=== PATIENT | female | born 1965 | race Caucasian/White ===

== ENCOUNTER → 2020-06-29 | Outpatient (CLI) | payer BC, OTHER ==
--- NOTE | 2020-07-14 14:03 | MM ---
Reason for exam: screening (asymptomatic). Last mammogram was performed 1 year and 10 months ago. History: Patient is postmenopausal. Family history of breast cancer in maternal grandmother and breast cancer in paternal cousin. Reductions of both breasts, 2013. Physical Findings: A clinical breast exam by your physician is recommended on an annual basis and results should be correlated with mammographic findings. MG 3D Screening Mammo W/Cad Bilateral CC and MLO view(s) were taken. Prior study comparison: August 15, 2018, mammogram, performed at [facility]. September 25, 2017, mammogram, performed at [facility]. July 05, 2015, mammogram, performed at [facility]. Benign appearing bilateral calcifications. There is chronic nodularity in the left breast. No significant changes when compared with prior studies. ASSESSMENT: Benign, BI-RAD 2 RECOMMENDATION: Routine screening mammogram of both breasts in 1 year.
== END | disposition home or self-care (01) ==
LOC: RADMAMWWP 09:09
PROVIDERS: ATTEND Family Medicine
DX: Z12.31 Encounter for screening mammogram for malignant neoplasm of breast (principal); Z80.3 Family history of malignant neoplasm of breast; Z78.0 Asymptomatic menopausal state
CPT/HCPCS: 77063; 77067

== ENCOUNTER 2020-07-22 07:20 | Day surgery (SDC) | payer OTHER ==
[2020-07-20 10:37] VITALS: BMI 27.4
[2020-07-22 07:54] VITALS: RESP 16; TEMP 97.9
[2020-07-22] MEDS: LACTATED RINGERS 1,000 ML IV SCH ×2 (08:00→09:17)
[2020-07-22] MEDS ORDERED: LIDOCAINE 1% (10MG/ML) FOR IV START INTRADERMA ONE (08:00)
[2020-07-22 08:05] LABS: Glucose,Whole Blood 103 mg/dL (75-99)
[2020-07-22] MEDS ORDERED: LIDOCAINE 1% INJ 10MG/ML (20 ML MDV) ONE (09:18)
[2020-07-22] MEDS ORDERED: PROPOFOL 10 MG/ML 20 ML VIAL IV ONE (09:18)
--- NOTE | 2020-07-22 09:38 | P.PCN ---
Date of Procedure: 07/22/20 Procedure(s) Performed: Brief history: Patient is a pleasant scheduled for an elective upper endoscopy as well as colonoscopy as a part of evaluation of reflux and history of GERD/intermittent dysphagia to solids and passive regurgitation for the last few months duration. Currently on Prilosec 20 mg daily and symptoms are gradually improving. She also has prior history of colon polyps and hence scheduled for colonoscopy today. Procedure performed: Esophagogastroduodenoscopy with biopsy Colonoscopy with biopsy and appeared normal. In the transverse colon there was a 3 mm polyp that was removed by cold biopsy. Rest of Preoperative diagnosis: GERD/intermittent dysphagia to solids and passive regurgitation History of colon polyps Anesthesia: MAC Procedure: After informed consent was obtained from the patient was brought into the endoscopy unit and IV sedation was administered by anesthesia under continuous monitoring. Initially upper endoscopy was done. The Olympus GF 160 video endoscope was inserted inserted into the mouth and esophagus intubated without any difficulty and was gradually advanced into the stomach and duodenum and carefully examined. The bulb and second part of the duodenum appeared normal. The scope was then withdrawn into the stomach adequately insufflated with air and upon careful examination the antrum had mild antral gastritis and biopsies were done from this area. The body, cardia and fundus appeared normal. The scope was then withdrawn into the esophagus. The GE junction was located at 40 cm to the incisors. It appeared regular with some erythema consistent with LA grade a reflux esophagitis. Rest of the esophagus appeared normal. His were done from the distal esophagus. Patient tolerated the procedure well. At this time the patient continued to remain sedation. Initial digital rectal examination was normal. Olympus CF 160 video colonoscope was then inserted into the rectum and gradually advanced to the cecum without any difficulty. Careful examination was performed as the scope was gradually being withdrawn. The prep was excellent. The cecum, ascending colon, transverse colon, descending colon, sigmoid colon and rectum appeared normal. Retroflexion was performed in the rectum and no lesions were noted. Patient tolerated the procedure well. Impression: 1. Upper endoscopy revealed mild antral gastritis and LA grade a reflux esophagitis 2. Colonoscopy revealed a 2-3 mm polyp in the transverse colon status post rem oval by cold biopsy Recommendations: Findings of this examination were discussed with the patient as well as her family. She was advised to follow with the biopsy results. If the biopsy reveals adenoma she can have a repeat colonoscopy in 5 years. In the past the gastroesophageal reflux symptoms she will continue with Prilosec 20 mg daily and follow antireflux measures.
[2020-07-22 09:43] VITALS: PULSE 59
[2020-07-22 09:56] VITALS: BP 142/92
== END 2020-07-22 10:10 | disposition home or self-care (01) ==
LOC: ORWHC2ENDO 07:20
PROVIDERS: ATTEND Internal Medicine Gastroenterology
DX: Z12.11 Encounter for screening for malignant neoplasm of colon (principal); D12.3 Benign neoplasm of transverse colon; K29.50 Unspecified chronic gastritis without bleeding; K20.0 Eosinophilic esophagitis; R13.10 Dysphagia, unspecified; I10 Essential (primary) hypertension; E78.5 Hyperlipidemia, unspecified; Z86.010 Personal history of colon polyps; F17.210 Nicotine dependence, cigarettes, uncomplicated; F32.9 Major depressive disorder, single episode, unspecified; Z90.710 Acquired absence of both cervix and uterus; Z98.890 Other specified postprocedural states; Z90.89 Acquired absence of other organs; Z79.82 Long term (current) use of aspirin; Z79.899 Other long term (current) drug therapy
CPT/HCPCS: 88305; 45380; 43239; J2001; J2704

== ENCOUNTER → 2020-12-26 | Outpatient (CLI) | payer OTHER ==
--- NOTE | 2020-12-26 08:53 | CT ---
EXAMINATION TYPE: CT chest wo con DATE OF EXAM: 12/26/2020 COMPARISON: None, no outside images are available. HISTORY: follow up known pulmonary nodule CT DLP: 251.1 mGycm, Automated exposure control for dose reduction was used. CONTRAST: Performed injected with 0 mL of Isovue 300. TECHNIQUE: Axial images were obtained at 5 mm thick sections. Reconstructed images are reviewed on [employer] computer in the coronal plane. FINDINGS: Portion of the thyroid visualized is normal. There is a tiny peripheral nodule at the right lateral lung base, series 4 image 46. No enlarged medi astinal or hilar adenopathy is evident. The ascending aorta diameter at the level of the main pulmo nary artery is 4.1 cm. The main pulmonary artery diameter at the bifurcation is 1.[address] sections are obtained through the upper abdomen. Abdomen is essentially unremarkable. IMPRESSIONS: 1. Punctate peripheral nodularity in the right costophrenic angle. 2. If comparison images can be obtained, more direct evaluation for pulmonary nodule can be performed .
== END | disposition home or self-care (01) ==
LOC: RADCTMAIN 07:40
DX: R91.1 Solitary pulmonary nodule (principal)
CPT/HCPCS: 71250

== ENCOUNTER → 2021-02-10 | Outpatient (CLI) | payer OTHER ==
--- NOTE | 2021-02-10 12:44 | ECHOF ---
Referral Reason:I71.9 Aortic aneurysm of unspecified site, without MEASUREMENTS -------- HEIGHT: 165.1 cm WEIGHT: 74.8 kg BP: IVSd: 1.1 cm (0.6 - 1.1) LVIDd: 3.6 cm (3.9 - 5.3) LVPWd: 1.3 cm (0.6 - 1.1) IVSs: 1.6 cm LVIDs: 3.0 cm LVPWs: 1.3 cm LA Diam: 3.2 cm (2.7 - 3.8) LAESV Index (A-L): 24.90 ml/m Ao Diam: 2.8 cm (2.0 - 3.7) AV Cusp: 1.7 cm (1.5 - 2.6) LA Diam: 3.1 cm (2.7 - 3.8) MV EXCURSION: 13.189 mm (> 18.000) MV EF SLOPE: 61 mm/s (70 - 150) EPSS: 0.6 cm MV E Eleuterio: 0.37 m/s MV DecT: 225 ms MV A Eleuterio: 0.51 m/s MV E/A Ratio: 0.73 AR PHT: 456 ms RAP: 5.00 mmHg RVSP: 16.07 mmHg FINDINGS -------- Sinus rhythm. This was a technically good study. LV size, wall thickness and systolic function are normal, with an EF greater than 55%. The left olivia tricular size is normal. The right ventricle is normal in size. Normal LA size by volume 22+/-6 ml/m2. The right atrial size is normal. Trace amount of aortic regurgitation. Mild mitral regurgitation is present. Mild tricuspid regurgitation present. Right ventricular systolic pressure is normal at < 35 mmHg. There is no pulmonic regurgitation present. Echo free space represents a pericardial fat pad. CONCLUSIONS -------- 1. LV size, wall thickness and systolic function are normal, with an EF greater than 55%. 2. The left ventricular size is normal. 3. The right ventricle is normal in size. 4. Normal LA size by volume 22+/-6 ml/m2. 5. The right atrial size is normal. 6. Trace amount of aortic regurgitation. 7. Mild mitral regurgitation is present. 8. Mild tricuspid regurgitation present. 9. There is no pulmonic regurgitation present. 10. Echo free space represents a pericardial fat pad. UTILIZATION MANAGEMENT MANAGER: Myra Peterson RDCS
== END | disposition home or self-care (01) ==
LOC: RADECHMAIN 08:00
PROVIDERS: ATTEND Physician Assistant
DX: I34.0 Nonrheumatic mitral (valve) insufficiency (principal); I07.1 Rheumatic tricuspid insufficiency
CPT/HCPCS: 93306

== ENCOUNTER → 2021-12-18 | Outpatient (CLI) | payer OTHER ==
--- NOTE | 2021-12-18 12:56 | CT ---
EXAMINATION TYPE: CT chest wo con DATE OF EXAM: 12/18/2021 COMPARISON: Chest CT December 26, 2020 and outside study May 07, 2019 HISTORY: f/u nodules, aneurysm CT DLP: 311.5 mGycm. Automated Exposure Control for Dose Reduction was Utilized. TECHNIQUE: CT scan of the thorax is performed without IV contrast. FINDINGS: LUNGS: Mild linear scarring laterally right lower lobe axial image 42 is redemonstrated. Stable 3 to 4 mm peripheral or subpleural right lower lobe nodule laterally axial image 46. No new or enlarging g reater than 5 mm pulmonary nodules. No pleural effusion or pneumothorax seen bilaterally. MEDIASTINUM: Lack of IV contrast is noted to limit evaluation for mediastinal and especially hilar ad enopathy. There are no definitive greater than 1 cm hilar or mediastinal lymph nodes. No cardiomega ly or pericardial effusion is seen. Some aorta measures up to 3.7 cm in diameter axial images 28 ander lar in size to prior CT. OTHER: No additional significant abnormality is seen. IMPRESSION: Stable tiny right lower lung nodule presumed benign. Stable borderline 3.7 cm aneurysm of the ascending aorta accounting for technical differences.
== END | disposition home or self-care (01) ==
LOC: RADCTMAIN 11:36
PROVIDERS: ATTEND Surgery
DX: I71.2 Thoracic aortic aneurysm, without rupture (principal); R91.1 Solitary pulmonary nodule
CPT/HCPCS: 71250

== ENCOUNTER → 2022-01-29 | Outpatient (CLI) | payer BC ==
--- NOTE | 2022-01-29 14:34 | BD ---
EXAMINATION TYPE: Axial Bone Density DATE OF EXAM: 01/29/2022 COMPARISON: NONE CLINICAL HISTORY: 57 years year old Female. ICD-10 CODE: M85.88 DISRD OF BONE DENSITY A Height: 65 Weight: 169.2 FRAX RISK QUESTIONS: Alcohol (3 or more units per day): NO Family History (Parent hip fracture): NO Glucocorticoids (More than 3mos): NO History of Fracture in Adulthood: NO Secondary Osteoporosis: 1. Type 1 Diabetes: NO 2. Hyperthyroidism: NO 3. Menopause before 45: NO 4. Malnutrition: NO 5. Chronic liver disease: NO Rheumatoid Arthritis: NO Current Tobacco Use: YES RISK FACTORS HISTORY OF: Hip Fracture (Right/Left): NO Spine Fracture: NO History of Wrist Fracture: NO Surgery to Spine/Hip(right/left)/Wrist (right/left): NO Family History of Osteoporosis: YES MOTHER Active: NO Diet low in dairy products/other sources of calcium: YES Postmenopausal woman: YES Take estrogen and/or progesterone medications: NO Lost more than 2 inches in height since high school: NO Frequent falls: NO Poor Health: NO Hyperparathyroidism: NO Adrenal Insufficiency: NO MEDICATIONS: Prednisone or other steroids: NO Thyroid Medications: NO Osteoporosis Medications: NO Additional Medications: BP MEDS X3, JANEVUA, PLAVIX, REFLUX MEDS, EXAM MEASUREMENTS: Bone mineral densitometry was performed using the [employer] System. Bone mineral density as measured about the Lumbar spine is: ----- L1-L4(G/cm2): 1.133 T Score Values are as follows: ----- L1: -0.9 ----- L2: -0.4 ----- L3: -0.7 ----- L4: 0.1 ----- L1-L4: -0.4 BASELINE STUDY Bone mineral density about the R hip (g/cm2): 0.800 Bone mineral density about the L hip (g/cm2): 0.842 T Score values are as follows: -----R Neck: -1.7 -----L Neck: -1.4 -----R Total: -1.5 -----L Total: -1.0 BASELINE STUDY FRAX%s: The graph provided illustrates a 8.1% chance for a major osteoporotic fx and a 1.3% chance fo r the hips probability for fx in 10 years time. IMPRESSION: Osteopenia (T Score between -2.5 and -1). There is slightly increased risk of fracture and the patient may be considered for treatment. Re-Screen 2-5 years. NOTE: T-SCORE=SD OF THE YOUNG ADULT MEAN.
--- NOTE | 2022-01-29 14:42 | XR ---
EXAM TYPE: LUMBAR SPINE X RAY SERIES COMPARISON: NONE HISTORY: Pain TECHNIQUE: 4 views are submitted. FINDINGS: Alignment is anatomic. The pedicles are intact. The transverse processes are intact. There is no s pondylolysis or spondylolisthesis. Diffuse osteopenia. Severe degenerative disc disease L5-S1 with f acet arthropathy and foraminal encroachment. Multilevel hypertrophic spurring of the additional level s. IMPRESSION: 1. Severe degenerative disc disease L5-S1 with facet arthropathy and suspected foraminal encroachment ..
--- NOTE | 2022-01-30 08:30 | MM ---
Reason for Exam: Screening (asymptomatic). Last mammogram was performed 1 year(s) and 7 month(s) ago. Patient History: Menarche at age 11. First Full-Term at age 20. Hysterectomy at age 44. Postmenopausal. 2012, Bilateral Reduction. Maternal grandmother had breast cancer. Paternal cousin had breast cancer. Risk Values: Jesi 5 year model risk: 1.2%. NCI Lifetime model risk: 6.9%. Prior Study Comparison: 09/25/2017 Screening Mammogram, [facility]. 08/15/2018 Screening Mammogram, [facility]. 06/29/2020 Bilateral Screening Mammogram, [facility]. Tissue Density: The breast tissue is heterogeneously dense. This may lower the sensitivity of mammography. Findings: Analyzed By CAD. There is no suspicious group of microcalcifications or new suspicious mass in either breast. Benign-appearing bilateral calcifications. Chronic nodularity in the left breast. No significant change from prior exams. Overall Assessment: Benign, BI-RAD 2 Management: Screening Mammogram of both breasts in 1 year. A clinical breast exam by your physician is recommended on an annual basis and results should be correlated with mammographic findings. Electronically signed and approved by: Chace Arciniega D.O.
== END | disposition home or self-care (01) ==
LOC: RADMAMWWP 12:53
PROVIDERS: ATTEND Internal Medicine
DX: Z12.31 Encounter for screening mammogram for malignant neoplasm of breast (principal); M85.89 Other specified disorders of bone density and structure, multiple sites; M51.37 Other intervertebral disc degeneration, lumbosacral region; M47.817 Spondylosis without myelopathy or radiculopathy, lumbosacral region; Z78.0 Asymptomatic menopausal state; Z80.3 Family history of malignant neoplasm of breast
CPT/HCPCS: 72110; 77063; 77067; 77080

== ENCOUNTER → 2022-04-16 | Outpatient (CLI) | payer BC ==
--- NOTE | 2022-04-17 06:41 | MR ---
EXAMINATION TYPE: MR lumbar spine wo con DATE OF EXAM: 04/16/2022 COMPARISON: Lumbar spine x-rays January 29, 2022 HISTORY: Low back pain that radiates down left leg TECHNIQUE: Multiplanar, multisequence imaging of the lumbar spine is performed without IV contrast. FINDINGS: Sagittal images of the lumbar spine show vertebral body height to appear satisfactory. Mult ilevel disc desiccation is seen. There is subtle grade 1 retrolisthesis L1 on L2 with mild disc space narrowing. There is vacuum disc phenomenon with moderate to advanced disc space narrowing at L5-S1 l evel and heterogeneous Modic type II endplate changes The conus medullaris is normal in position and signal ending at L1-L2 disc space level. Axial images at T12-L1 level appear within normal limits. Axial images at L1-L2 level shows subtle spondylolisthesis with mild broad disc bulge mildly effaces the anterior thecal sac. Axial images at L2-L3 level show mild broad disc bulge minimally effacing anterior thecal sac. Axial images at L3-L4 level appear within normal limits. Axial images at L4-L5 levels with mild to moderate facet arthropathy bilaterally mildly effacing the posterior lateral thecal sac. Axial images at L5-S1 level show mild broad disc bulge and facet arthropathy bilaterally. Spinal amparo l is minimally effaced. There is mild bilateral anterior inferior neural foraminal narrowing. No suspicious incidental retroperitoneal findings. IMPRESSION: Multilevel degenerative changes in the lumbar spine as detailed above.
== END | disposition home or self-care (01) ==
LOC: RADMRIMAIN 17:51
PROVIDERS: ATTEND Internal Medicine
DX: M47.817 Spondylosis without myelopathy or radiculopathy, lumbosacral region (principal); M99.74 Connective tissue and disc stenosis of intervertebral foramina of sacral region; M51.36 Other intervertebral disc degeneration, lumbar region
CPT/HCPCS: 72148

== ENCOUNTER → 2022-06-29 | Outpatient (CLI) | payer BC ==
--- NOTE | 2022-06-29 09:57 | USB ---
Reason for Exam: Clinical finding. Patient History: Menarche at age 11. First Full-Term at age 20. Hysterectomy at age 44. Postmenopausal. 2012, Bilateral Reduction. Maternal grandmother had breast cancer. Paternal cousin had breast cancer. Risk Values: Jesi 5 year model risk: 1.2%. NCI Lifetime model risk: 6.9%. Technique: Method: Targeted. Prior Study Comparison: 08/15/2018 Screening Mammogram, [facility]. 06/29/2020 Bilateral Screening Mammogram, [facility]. 01/29/2022 Bilateral MG 3D screening mammo w/cad, [facility]. Findings: The lower section of the breast of the left breast, the axilla of the left breast and the retroareolar of the left breast were scanned. Imaged: Ultrasound imaging of: All 4 quadrants, the retroareolar region and axilla. No evidence for organizing fluid collection or mass. Simple appearing cyst at 3:00 5 cm the nipple measuring 6 mm. The skin in the area of palpable abnormality demonstrates no organizing fluid collection. Mild skin thickening. Overall Assessment: Benign, BI-RAD 2 Management: Screening Mammogram of both breasts in 1 year. Clinical correlation for area of palpable abnormality. No organizing fluid collection. A clinical breast exam by your physician is recommended on an annual basis and results should be correlated with mammographic findings. This exam should not preclude additional follow-up of suspicious palpable abnormalities. Results were given to the patient verbally at the time of exam. Electronically signed and approved by: Frankie Posey DO
== END | disposition home or self-care (01) ==
LOC: RADUSWWP 08:31
PROVIDERS: ATTEND Internal Medicine
DX: B99.9 Unspecified infectious disease (principal); Z78.0 Asymptomatic menopausal state; Z80.3 Family history of malignant neoplasm of breast

== ENCOUNTER 2022-10-23 19:43 | Outpatient (CLI) | payer BC | END 2022-10-24 05:30 | disposition home or self-care (01) | LOC: 3 N SLEEP 19:43 | PROVIDERS: ATTEND Internal Medicine Critical Care Medicine | DX: G47.10 Hypersomnia, unspecified (principal) | CPT/HCPCS: 95810 ==

== ENCOUNTER 2023-04-19 14:28 | Observation (INO) | payer OTHER ==
[2023-04-19] MEDS ORDERED: NITROGLYCERIN OINT 1 INCH/GM PACKET TOPICAL STA (15:27)
[2023-04-19] MEDS ORDERED: ASPIRIN 81 MG PO STA (15:27)
[2023-04-19 15:38] LABS: Basophils % (A) 0 %; Eosinophils # (A) 0.4 k/uL (0-0.7); Eosinophils % (A) 4 %; HCT 42.5 % (34.0-46.0); HGB 14.8 gm/dL (11.4-16.0); Lymphocytes % (A) 29 %; MCH 29.4 pg (25.0-35.0); MCHC 34.8 g/dL (31.0-37.0); MCV 84.6 fL (80.0-100.0); Mean Platelet Volume 7.3; Monocytes # (A) 0.5 k/uL (0-1.0); Monocytes % (A) 5 %; Neutrophils # (A) 6.2 k/uL (1.3-7.7); Neutrophils % (A) 61 %; Platelet Count 263 k/uL (150-450); RBC 5.02 m/uL (3.80-5.40); RDW 12.9 % (11.5-15.5); WBC 10.1 k/uL (3.8-10.6)
--- NOTE | 2023-04-19 15:41 | ED ---
General Adult HPI - General Chief complaint: Chest Pain Stated complaint: heavy chest Time Seen by Provider: 04/19/23 14:50 Source: patient, RN notes reviewed, old records reviewed Mode of arrival: ambulatory Limitations: no limitations - History of Present Illness Initial comments: Is a 58-year-old female who presents to the emergency department complaining of chest pressure on and off for the last 3 days. Patient states the pressure usually last about an hour. Patient states she has occasional pain in her back but not every time. Patient denies any diaphoretic episodes. Patient denies shortness of breath but states she does have some nausea associated with the pain. Patient denies headache patient denies numbness weakness. Patient denies any fever chills or cough or patient has abdominal pain patient denies any swelling the legs or calf tenderness - Related Data Home Medications Medication Instructions Recorded Confirmed Aspirin 81 mg PO DAILY 07/20/20 07/22/20 Escitalopram [Lexapro] 1 tab PO DAILY 07/22/20 07/22/20 Fluticasone Nasal [place] [Flonase 2 spray NASAL DAILY 07/22/20 07/22/20 Nasal [place]] Losartan [Cozaar] 1 tab PO DAILY 07/22/20 07/22/20 Omeprazole 1 tab PO DAILY 07/22/20 07/22/20 hydroCHLOROthiazide 1 tab PO DAILY 07/22/20 07/22/20 Allergies Allergy/AdvReac Type Severity Reaction Status Date / Time No Known Allergies Allergy Verified 04/19/23 14:33 Review of Systems ROS Statement: Those systems with pertinent positive or pertinent negative responses have been documented in the HPI. ROS Other: All systems not noted in ROS Statement are negative. Past Medical History Past Medical History: Coronary Artery Disease (CAD), Chest Pain / Angina, Diabetes Mellitus, Hypertension Additional Past Medical History / Comment(s): AO. History of Any Multi-Drug Resistant Organisms: None Reported Past Surgical History: No Surgical Hx Reported Past Psychological History: No Psychological Hx Reported Smoking Status: Current every day smoker Past Alcohol Use History: None Reported Past Drug Use History: None Reported General Exam - General Exam Comments Initial Comments: GENERAL: Patient is well-developed and well-nourished. Patient is nontoxic and well- hydrated and is in mild distress. ENT: Neck is soft and supple. No significant lymphadenopathy is noted. Oropharynx is clear. Moist mucous membranes. Neck has full range of motion without eliciting any pain. EYES: The sclera were anicteric and conjunctiva were pink and moist. Extraocular movements were intact and pupils were equal round and reactive to light. Eyelids were unremarkable. PULMONARY: Unlabored respirations. Good breath sounds bilaterally. No audible rales rhonchi or wheezing was noted. CARDIOVASCULAR: There is a regular rate and rhythm without any murmurs gallops or rubs. ABDOMEN: Soft and nontender with normal bowel sounds. SKIN: Skin is clear with no lesions or rashes and otherwise unremarkable. NEUROLOGIC: Patient is alert and oriented x3. Cranial nerves II through XII are grossly intact. Motor and sensory are also intact. Normal speech, volume and content. Symmetrical smile. MUSCULOSKELETAL: Normal extremities with adequate strength and full range of motion. No lower extremity swelling or edema. No calf tenderness. LYMPHATICS: No significant lymphadenopathy is noted PSYCHIATRIC: Normal psychiatric evaluation. Limitations: no limitations Course Vital Signs 04/19/23 04/19/23 04/19/23 14:31 15:07 16:03 Temperature 98.1 F Pulse Rate 93 86 81 Pulse Rate [ 76 Resident Medical Officer ] Respiratory 20 18 18 Rate Blood Pressure 185/92 159/99 133/93 O2 Sat by Pulse 97 97 94 L Oximetry Medical Decision Making - Medical Decision Making EKG is interpreted by myself. EKG shows a sinus rhythm at 84 bpm parables 137 QRS 103 QT interval 346 QTc is 387. Patient's EKG shows no ST segment ovation or depression Was pt. sent in by a medical professional or institution (, [facility], SERVICE CLERK, urgent care, hospital, or long-term...) When possible be specific @ -Patient's primary medical care sent the patient in Did you speak to anyone other than the patient for history (EMS, parent, family, police, friend...)? What history was obtained from this source @ -No Did you review nursing and triage notes (agree or disagree)? Why? @ -I reviewed and agree with nursing and triage notes Were old charts reviewed (outside hosp., previous admission, EMS record, old EKG, old radiological studies, urgent care reports/EKG's, long-term records)? Report findings @ -I reviewed prior charts and prior lab work on this patient Differential Diagnosis (chest pain, altered mental status, abdominal pain women, abdominal pain men, vaginal bleeding, weakness, fever, dyspnea, syncope, headache, dizziness, GI bleed, back pain, seizure, CVA, palpatations, mental health, musculoskeletal)? @ -Differential Chest Pain: Stable Angina, Unstable Angina, STEMI, NSTEMI Aortic Dissection, Pneumothorax, Musculoskeletal, Esophageal Spasm GERD, Cholecystitis, Pancreatitis, Zoster, this is not meant to be an all-inclusive list. EKG interpreted by me (3pts min.). @ -As above X-rays interpreted by me (1pt min.). @ -Chest x-ray shows no acute abnormality CT interpreted by me (1pt min.). @ -None done U/S interpreted by me (1pt. min.). @ -None done What testing was considered but not performed or refused? (CT, X-rays, U/S, labs)? Why? @ -None What meds were considered but not given or refused? Why? @ -None Did you discuss the management of the patient with other professionals (professionals i.e. , PA, SERVICE CLERK, lab, RT, psych nurse, drug abuse social worker, medical associate, teacher, protection officer, case management director)? Give summary @ -I spoke with physicians he agreed admit the patient Was smoking cessation discussed for >3mins.? @ -No Was critical care preformed (if so, how long)? @ -No Were there social determinants of health that impacted care today? How? (Homelessness, low income, unemployed, alcoholism, drug addiction, transportation, low edu. Level, literacy, decrease access to med. care, long-term, rehab)? @ -No Was there de-escalation of care discussed even if they declined (Discuss DNR or withdrawal of care, Hospice)? DNR status @ -No What co-morbidities impacted this encounter? (DM, HTN, Smoking, COPD, CAD, Cancer, CVA, ARF, Chemo, Hep., AIDS, mental health diagnosis, sleep apnea, morbid obesity)? @ -None Was patient admitted / discharged? Hospital course, mention meds given and route, prescriptions, significant lab abnormalities, going to OR and other pertinent info. @ -Patient was given aspirin and Nitropaste. Lab work came back within normal range per x-rays came back within normal range. I spoke with sound physician and they agreed with the patient and the patient report admitting orders and I consulted cardiology Undiagnosed new problem with uncertain prognosis? @ -No Drug Therapy requiring intensive monitoring for toxicity (Heparin, Nitro, Insulin, Cardizem)? @ -No Were any procedures done? @ -No Diagnosis/symptom? @ -Chest pain Acute, or Chronic, or Acute on Chronic? @ -Acute Uncomplicated (without systemic symptoms) or Complicated (systemic symptoms)? @ -Complicated Side effects of treatment? @ -No Exacerbation, Progression, or Severe Exacerbation? @ -No Poses a threat to life or bodily function? How? (Chest pain, USA, NM, pneumonia, PE, COPD, DKA, ARF, appy, cholecystitis, CVA, Diverticulitis, Homicidal, Kim icidal, threat to staff... and all critical care pts) @ -Yes this could lead to an NM which can lead to endorgan dysfunction - Lab Data Result diagrams: 04/19/23 15:28 04/19/23 15:28 Lab Results 04/19/23 04/19/23 04/19/23 Range/Units 15:28 15:28 15:28 WBC 10.1 (3.8-10.6) k/uL RBC 5.02 (3.80-5.40) m/uL Hgb 14.8 (11.4-16.0) gm/dL Hct 42.5 (34.0-46.0) % MCV 84.6 (80.0-100.0) fL MCH 29.4 (25.0-35.0) pg MCHC 34.8 (31.0-37.0) g/dL RDW 12.9 (11.5-15.5) % Plt Count 263 (150-450) k/uL MPV 7.3 Neutrophils % 61 % Lymphocytes % 29 % Monocytes % 5 % Eosinophils % 4 % Basophils % 0 % Neutrophils # 6.2 (1.3-7.7) k/uL Lymphocytes # 3.0 (1.0-4.8) k/uL Monocytes # 0.5 (0-1.0) k/uL Eosinophils # 0.4 (0-0.7) k/uL Basophils # 0.0 (0-0.2) k/uL PT 10.7 (10.0-12.5) sec INR 1.0 (<1.2) APTT 25.8 (22.0-30.0) sec Sodium 139 (137-145) mmol/L Potassium 3.7 (3.5-5.1) mmol/L Chloride 107 (98-107) mmol/L Carbon Dioxide 21 L (22-30) mmol/L Anion Gap 11 mmol/L BUN 16 (7-17) mg/dL Creatinine 0.65 (0.52-1.04) mg/dL Est GFR (CKD-EPI)AfAm >90 (>60 ml/min/1.73 sqM) Est GFR (CKD-EPI)NonAf >90 (>60 ml/min/1.73 sqM) Glucose 238 H (74-99) mg/dL Calcium 9.6 (8.4-10.2) mg/dL Magnesium 2.1 (1.6-2.3) mg/dL Total Bilirubin 0.8 (0.2-1.3) mg/dL AST 30 (14-36) U/L ALT 29 (4-34) U/L Alkaline Phosphatase 124 (38-126) U/L Troponin I (0.000-0.034) ng/mL Total Protein 7.9 (6.3-8.2) g/dL Albumin 4.6 (3.5-5.0) g/dL 04/19/23 Range/Units 15:28 WBC (3.8-10.6) k/uL RBC (3.80-5.40) m/uL Hgb (11.4-16.0) gm/dL Hct (34.0-46.0) % MCV (80.0-100.0) fL MCH (25.0-35.0) pg MCHC (31.0-37.0) g/dL RDW (11.5-15.5) % Plt Count (150-450) k/uL MPV Neutrophils % % Lymphocytes % % Monocytes % % Eosinophils % % Basophils % % Neutrophils # (1.3-7.7) k/uL Lymphocytes # (1.0-4.8) k/uL Monocytes # (0-1.0) k/uL Eosinophils # (0-0.7) k/uL Basophils # (0-0.2) k/uL PT (10.0-12.5) sec INR (<1.2) APTT (22.0-30.0) sec Sodium (137-145) mmol/L Potassium (3.5-5.1) mmol/L Chloride (98-107) mmol/L Carbon Dioxide (22-30) mmol/L Anion Gap mmol/L BUN (7-17) mg/dL Creatinine (0.52-1.04) mg/dL Est GFR (CKD-EPI)AfAm (>60 ml/min/1.73 sqM) Est GFR (CKD-EPI)NonAf (>60 ml/min/1.73 sqM) Glucose (74-99) mg/dL Calcium (8.4-10.2) mg/dL Magnesium (1.6-2.3) mg/dL Total Bilirubin (0.2-1.3) mg/dL AST (14-36) U/L ALT (4-34) U/L Alkaline Phosphatase (38-126) U/L Troponin I <0.012 (0.000-0.034) ng/mL Total Protein (6.3-8.2) g/dL Albumin (3.5-5.0) g/dL Disposition Clinical Impression: Chest pain Disposition: ADMITTED IP TO THIS HOSP Referrals: [facility],Clinic [Primary Care Provider] - 1-2 days Time of Disposition: 16:20
--- NOTE | 2023-04-19 15:43 | XR ---
EXAMINATION TYPE: XR chest 2V DATE OF EXAM: 04/19/2023 3:34 PM CLINICAL INDICATION:Female, 58 years old with history of Chest Pain; COMPARISON: 12/18/2021 TECHNIQUE: XR chest 2V Frontal and lateral views of the chest. FINDINGS: Lungs/Pleura: There is no evidence of pleural effusion, focal consolidation, or pneumothorax. Pulmonary vascularity: Unremarkable. Heart/mediastinum: Cardiomediastinal silhouette is unremarkable. Musculoskeletal: No acute osseous pathology. IMPRESSION: No acute cardiopulmonary disease/process.
[2023-04-19 15:48] LABS: Partial Thromboplastin Time 25.8 sec (22.0-30.0); Potassium 3.7 mmol/L (3.5-5.1); Prothrombin Time 10.7 sec (10.0-12.5)
[2023-04-19 15:49] LABS: ALT 29 U/L (4-34); AST 30 U/L (14-36); African American GFR (CKD) >90 (>60 ml/min/1.73 sqM); Albumin 4.6 g/dL (3.5-5.0); Alkaline Phosphatase 124 U/L (38-126); Anion Gap 11 mmol/L; Blood Urea Nitrogen 16 mg/dL (7-17); Calcium 9.6 mg/dL (8.4-10.2); Carbon Dioxide 21 mmol/L (22-30); Chloride 107 mmol/L (98-107); Glucose 238 mg/dL (74-99); Magnesium 2.1 mg/dL (1.6-2.3); Non-African American GFR(CKD) >90 (>60 ml/min/1.73 sqM); Sodium 139 mmol/L (137-145); Total Bilirubin 0.8 mg/dL (0.2-1.3); Total Protein 7.9 g/dL (6.3-8.2)
[2023-04-19] MEDS ORDERED: NITROGLYCERIN SL TABS 0.4 MG TAB SUBLINGUAL PRN (16:20)
[2023-04-19] MEDS ORDERED: DEXTROSE 50% SYRINGE 50 ML IVP PRN ×2 (16:55)
--- NOTE | 2023-04-19 16:56 | P.HPIM ---
History of Present Illness H&P Date: 04/19/23 Patient is a 58-year-old female with history of hypertension, nicotine dependence, depression presenting with chest pressure. She claims that pressure started couple of days ago, has been intermittent. He can get so bad that she has to bend over to feel a little she denies any significant shortness of breath, nausea, vomiting, bowel complaints, urinary complaints. Denies any lower extremity swelling. Currently smokes about 2 cigarettes a day. No significant alcohol use. In the ED, temperature was 98.1, respiratory rate 20, pulse 93, blood pressure 185/92, saturating at 97% on room air. Chest x-ray did not show any acute opacities. EKG shows normal sinus rhythm. WBC 10.1, hemoglobin 14.8, bicarb 21, potassium 3.7, creatinine 0.65, glucose 238, troponin negative. Cardiology consulted. Patient being admitted for chest pain Pertinent positives and negatives as discussed in HPI, a complete review of systems was performed and all other systems are negative. Patient seen and examined at bedside. Vital signs reviewed General: nontoxic, no distress, appears at stated age Derm: warm, dry Head: atraumatic, normocephalic, symmetric Eyes: EOMI, no lid lag, anicteric sclera, pupils equal round reactive to light ENT: Nose and ears atraumatic Neck: No thyromegaly, supple Mouth: no lip lesion, mucus membranes moist Cardiovascular: S1S2 reg, no murmur, no edema Lungs: clear to auscultation bilateral, no rhonchi, no rales, no wheeze, no accessory muscle use Abdominal: soft, nontender to palpation, no guarding, no appreciable organomegaly Ext: no gross muscle atrophy, muscle strength muscle strength 5 out of 5 in all 4 extremities, no contractures Neuro: CN II-XII grossly intact Psych: Alert, oriented, appropriate affect Assessment/Plan: Chest pain, rule out ACS Hypertension Dyslipidemia Nicotine dependence Type 2 diabetes GERD -Monitor on telemetry -Trend troponin -No active chest pain -Aspirin 81 mg daily, atorvastatin 40 mg daily, also nitroglycerin topical -A1c ordered, sliding scale insulin, monitor for hypoglycemia -Continue Jardiance, hold alogliptin -Lipid panel pending -Counseled regarding smoking cessation -Cardiology consulted, pending recommendations -Continue home antihypertensives -Continue amlodipine 5, carvedilol 6.25 twice daily, losartan 100 mg daily The patient is admitted with an anticipated less than 2 midnight stay as observation status for evaluation of chest pain. Surrogate decision-maker: Jaylene, family member CODE STATUS: Full code DVT prophylaxis: Subcu heparin Anticipated discharge date: Pending clinical course Anticipated discharge place: Pending clinical course A total of 55 minutes was spent on the care of this complex patient more than 50% of the time was spent in counseling and care coordination. Past Medical History Past Medical History: Coronary Artery Disease (CAD), Chest Pain / Angina, Diabetes Mellitus, Hypertension Additional Past Medical History / Comment(s): AO. History of Any Multi-Drug Resistant Organisms: None Reported Past Surgical History: No Surgical Hx Reported Past Psychological History: No Psychological Hx Reported Smoking Status: Current every day smoker Past Alcohol Use History: None Reported Past Drug Use History: None Reported Medications and Allergies Home Medications Medication Instructions Recorded Confirmed Type Omeprazole 20 mg PO BID 07/22/20 04/19/23 History Alogliptin Benzoate [Alogliptin] 25 mg PO DAILY 04/19/23 04/19/23 History Atorvastatin [Lipitor] 40 mg PO DAILY 04/19/23 04/19/23 History Clopidogrel [Plavix] 75 mg PO DAILY 04/19/23 04/19/23 History Empagliflozin [Jardiance] 10 mg PO DAILY 04/19/23 04/19/23 History Losartan Potassium 100 mg PO DAILY 04/19/23 04/19/23 History amLODIPine [Norvasc] 5 mg PO DAILY 04/19/23 04/19/23 History carvediloL [Coreg] 6.25 mg PO BID 04/19/23 04/19/23 History Allergies Allergy/AdvReac Type Severity Reaction Status Date / Time No Known Allergies Allergy Verified 04/19/23 16:21 Physical Exam Vitals: Vital Signs Temp Pulse Pulse Resp BP Pulse Ox 04/19/23 16:03 81 18 133/93 94 L 04/19/23 15:07 86 76 18 159/99 97 04/19/23 14:31 98.1 F 93 20 185/92 97 Intake and Output 04/19/23 04/19/23 04/19/23 06:59 14:59 22:59 Other: Weight 72.575 kg Results CBC & Chem 7: 04/19/23 15:28 04/19/23 15:28 Labs: Abnormal Lab Results - Last 24 Hours (Table) 04/19/23 Range/Units 15:28 Carbon Dioxide 21 L (22-30) mmol/L Glucose 238 H (74-99) mg/dL
[2023-04-19] MEDS: carvediloL 6.25 MG TAB PO SCH (17:46)
[2023-04-19] MEDS: PANTOPRAZOLE 40 MG TABLET PO SCH (17:46)
[2023-04-19 17:49] LABS: Glucose,Whole Blood 184 mg/dL (70-110)
[2023-04-19] MEDS: INSULIN ASPART (NovoLOG) 100 UNIT/ML VIAL SQ SCH ×2 (17:53→20:33)
[2023-04-19] MEDS: NITROGLYCERIN OINT 1 INCH/GM PACKET TOPICAL SCH ×2 (17:54→23:24)
[2023-04-19 20:28] LABS: Glucose,Whole Blood 92 mg/dL (70-110)
[2023-04-20 05:36] LABS: Glucose,Whole Blood 146 mg/dL (70-110)
[2023-04-20] MEDS: INSULIN ASPART (NovoLOG) 100 UNIT/ML VIAL SQ SCH ×2 (06:04→11:33)
[2023-04-20] MEDS: NITROGLYCERIN OINT 1 INCH/GM PACKET TOPICAL SCH ×2 (06:08→13:18)
[2023-04-20] MEDS: PANTOPRAZOLE 40 MG TABLET PO SCH (06:10)
[2023-04-20] MEDS: carvediloL 6.25 MG TAB PO SCH (06:10)
[2023-04-20 08:20] VITALS: RESP 18
[2023-04-20] MEDS ORDERED: ASPIRIN 325 MG TAB PO SCH (09:00)
[2023-04-20] MEDS ORDERED: LOSARTAN 50 MG TAB PO SCH (09:00)
[2023-04-20] MEDS ORDERED: DAPAGLIFLOZIN PROPANEDIOL 5 MG TABLET PO SCH (09:00)
[2023-04-20] MEDS ORDERED: amLODIPine 5 MG TAB PO SCH (09:00)
[2023-04-20] MEDS ORDERED: ASPIRIN 81 MG PO SCH (09:00)
[2023-04-20] MEDS ORDERED: ATORVASTATIN 40 MG TAB PO SCH (09:00)
[2023-04-20 09:55] LABS: Chol/HDL Ratio 4.52 Ratio; LDL Cholesterol,Calculated 117.3 mg/dL (0.0-131.0)
[2023-04-20 11:34] LABS: Glucose,Whole Blood 120 mg/dL (70-110)
--- NOTE | 2023-04-20 14:02 | P.PN ---
Subjective Progress Note Date: 04/20/23 Hospital Course: 58-year-old female with history of hypertension, nicotine dependence, depression presenting with chest pressure. In the ED, temperature was 98.1, respiratory rate 20, pulse 93, blood pressure 185/92, saturating at 97% on room air. Chest x-ray did not show any acute opacities. EKG shows normal sinus rhythm. WBC 10.1, hemoglobin 14.8, bicarb 21, potassium 3.7, creatinine 0.65, glucose 238, troponin negative. Cardiology consulted. Patient being admitted for chest pain. Subjective: Patient seen and examined at bedside. No acute events overnight. Denies any further chest pain. Pertinent positives and negatives as discussed above, a complete review of systems was performed and all other systems are negative. Vitals Signs Reviewed. General: Nontoxic, no distress, appears at stated age Derm: Warm, dry Head: Atraumatic, normocephalic, symmetric Eyes: EOMI, no lid lag, anicteric sclera Mouth: No lip lesion, mucus membranes moist Cardiovascular: S1S2 reg, no murmur Lungs: CTA bilateral, no rhonchi, no rales, no accessory muscle use Abdominal: Soft, nontender to palpation, no guarding, no appreciable organomegaly Ext: No gross muscle atrophy, no edema, no contractures Neuro: CN II-XI grossly intact, no focal neuro deficits Psych: Alert, oriented, appropriate affect Data Reviewed Today: Pertinent Labs: A1c 7.9, blood sugars range between 92-1 46, total cholesterol 185, LDL 117, troponin negative Imaging: EKG independently interpreted from this morning, shows normal sinus rhythm Assessment and Plan: Chest pain, ACS ruled Hypertension Dyslipidemia Nicotine dependence Type 2 diabetes GERD -Monitor on telemetry -No active chest pain -Aspirin 81 mg daily, atorvastatin 40 mg daily, also nitroglycerin topical -Continue sliding scale insulin, monitor for hypoglycemia -Continue Jardiance, hold alogliptin -Counseled regarding smoking cessation -Cardiology consulted, pending recommendations -Continue home antihypertensives -Continue amlodipine 5, carvedilol 6.25 twice daily, losartan 100 mg daily DVT ppx: Lovenox Code status: Full code Anticipated discharge place: Pending clinical course Anticipated discharge time: Pending clinical course Objective - Vital Signs Vital signs: Vital Signs Temp 97.4 F L 04/20/23 07:00 Pulse 75 04/20/23 07:00 Resp 18 04/20/23 07:00 BP 103/67 04/20/23 07:00 Pulse Ox 97 04/20/23 09:44 FiO2 Intake & Output 04/19/23 04/20/23 04/20/23 18:59 06:59 18:59 Intake Total 120 Balance 120 Weight 72.575 kg 72.575 kg Intake: Oral 120 Other: # Voids 2 - Labs CBC & Chem 7: 04/19/23 15:28 04/19/23 15:28 Labs: Abnormal Lab Results - Last 24 Hours (Table) 04/19/23 04/19/23 04/20/23 Range/Units 15:28 17:48 05:35 Carbon Dioxide 21 L (22-30) mmol/L Glucose 238 H (74-99) mg/dL POC Glucose (mg/dL) 184 H 146 H (70-110) mg/dL Hemoglobin A1c (<=6.0) % 04/20/23 04/20/23 Range/Units 06:35 11:32 Carbon Dioxide (22-30) mmol/L Glucose (74-99) mg/dL POC Glucose (mg/dL) 120 H (70-110) mg/dL Hemoglobin A1c 7.9 H (<=6.0) %
[2023-04-20 16:24] VITALS: BP 122/79; PULSE 62; TEMP 97.2
--- NOTE | 2023-04-20 16:29 | P.DS ---
Providers Date of admission: 04/19/23 16:22 Expected date of discharge: 04/20/23 Attending physician: Kalin Velez MD Consults: 04/19/23 16:20 Consult Physician Urgent Consulting Provider: [facility] Consult Reason/Comments: Chest pain Do you want consulting provider notified?: Yes Primary care physician: [facility] Hospital Course: Discharge Diagnosis: Chest pain, ACS ruled Hypertension Dyslipidemia Nicotine dependence Type 2 diabetes GERD Hospital Course: 58-year-old female with history of hypertension, nicotine dependence, depression presenting with chest pressure. In the ED, temperature was 98.1, respiratory rate 20, pulse 93, blood pressure 185/92, saturating at 97% on room air. Chest x-ray did not show any acute opacities. EKG shows normal sinus rhythm. WBC 10.1, hemoglobin 14.8, bicarb 21, potassium 3.7, creatinine 0.65, glucose 238, troponin negative. Cardiology consulted, recommended outpatient follow-up. ACS ruled out. Patient seen and examined at bedside. Vital signs reviewed and stable. General: Nontoxic, no distress, appears at stated age Derm: Warm, dry Head: Atraumatic, normocephalic, symmetric Eyes: EOMI, no lid lag, anicteric sclera Mouth: No lip lesion, mucus membranes moist Cardiovascular: S1S2 reg, no murmur Lungs: CTA bilateral, no rhonchi, no rales, no accessory muscle use Abdominal: Soft, nontender to palpation, no guarding, no appreciable organomegaly Ext: No gross muscle atrophy, no edema, no contractures Neuro: CN II-XI grossly intact, no focal neuro deficits Psych: Alert, oriented, appropriate affect A total of 33 minutes of time were spent preparing this complex discharge summary. Patient was discharged on 04/20/23 at 1628. Plan - Discharge Summary New Discharge Prescriptions: Continue Omeprazole 20 mg PO BID Atorvastatin [Lipitor] 40 mg PO DAILY carvediloL [Coreg] 6.25 mg PO BID amLODIPine [Norvasc] 5 mg PO DAILY Empagliflozin [Jardiance] 10 mg PO DAILY Losartan Potassium 100 mg PO DAILY Clopidogrel [Plavix] 75 mg PO DAILY Alogliptin Benzoate [Alogliptin] 25 mg PO DAILY Discharge Medication List Omeprazole 20 mg PO BID 07/22/20 [History] Alogliptin Benzoate [Alogliptin] 25 mg PO DAILY 04/19/23 [History] Atorvastatin [Lipitor] 40 mg PO DAILY 04/19/23 [History] Clopidogrel [Plavix] 75 mg PO DAILY 04/19/23 [History] Empagliflozin [Jardiance] 10 mg PO DAILY 04/19/23 [History] Losartan Potassium 100 mg PO DAILY 04/19/23 [History] amLODIPine [Norvasc] 5 mg PO DAILY 04/19/23 [History] carvediloL [Coreg] 6.25 mg PO BID 04/19/23 [History] Follow up Appointment(s)/Referral(s): [facility],Clinic [Primary Care Provider] - 1-2 days Stefan Gaspar DO [STAFF PHYSICIAN] - 1 Week Patient Instructions/Handouts: Chest Pain (DC) Activity/Diet/Wound Care/Special Instructions: Please see cardiology. Discharge Disposition: HOME SELF-CARE
--- NOTE | 2023-04-20 17:19 | P.CRDCN ---
History of Present Illness Consult date: 04/20/23 Consult reason: chest pain, hypertension Chief complaint: Chest pain and elevated blood pressure History of present illness: History of present illness: Patient is a pleasant 58-year-old female with significant past medical history of diabetes, tobacco abuse, and hypertension who presented with increased blood pressure and chest pressure. 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 She reports significant family history of her father having a CABG at age 58. Patient does smoke. She reports that she has been having increased blood pressures and has been trying to get seen by the ID and [place] however was referred to the emergency department. She does admit to having chest pressure episodes for the past couple days that occurs randomly. She denies any shortness of breath, dizziness, syncope. She does report that her legs feel shaky and weak at times. She did have 1 episode of chest pain and a hot flash this afternoon however the symptoms have resolved. Labs reviewed: A1c 7.9, troponin negative x 3, LDL 117, creatinine 0.65. Her blood pressure is better controlled and she would like to go home. REVIEW OF SYSTEMS: No fever or chills. No cough or expectoration. No diaphoresis. Patient denies headache, dizziness, blurred vision, double vision. Patient denies any stomach discomfort. No nausea, vomiting. No hematochezia. No hematemesis. Denies any black stools or blood in his stools. Denies dysuria or hematuria. No muscle weakness or numbness. No chest pain or pressure. PHYSICAL EXAMINATION: This is a 58-year-old female in no apparent distress at the time of my examination. HEENT: Head is atraumatic, normocephalic. Pupils are equal, round. Sclerae anicteric. Conjunctivae are clear. Mucous membranes of the mouth are moist. Neck is supple. There is no jugular venous distention. No carotid bruit is heard. CHEST EXAMINATION: Lungs are clear to auscultation. No chest wall tenderness is noted on palpation or with deep breathing. HEART EXAMINATION: Heart regular rate and rhythm. S1, S2 heard. No murmurs, gallops or rub. ABDOMEN: Soft, nontender. Bowel sounds are heard. EXTREMITIES: 2+ peripheral pulses with no evidence of peripheral edema and no calf tenderness noted. NEUROLOGIC EXAMINATION: Patient is awake, alert and oriented x3. IMPRESSION AND PLAN: Hypertension Hyperlipidemia Diabetes Tobacco abuse Family history of heart disease Chest pressure PLAN: Her blood pressure is been better controlled, continue with current regimen. Troponins were negative. Recommend further workup with outpatient stress testing and echo. Okay to discharge home from a cardiology standpoint. Follow-up in clinic in 1 to 2 weeks. If symptoms worsen she was advised to return to the emergency department. I am dictating on behalf of Dr. Stefan Gaspar's history/physical and assessment/plan. Past Medical History Past Medical History: Coronary Artery Disease (CAD), Chest Pain / Angina, Diabetes Mellitus, Hyperlipidemia, Hypertension Additional Past Medical History / Comment(s): thoracic aortic anuersym History of Any Multi-Drug Resistant Organisms: None Reported Past Surgical History: No Surgical Hx Reported Past Psychological History: No Psychological Hx Reported Smoking Status: Current every day smoker Past Alcohol Use History: None Reported Past Drug Use History: None Reported Medications and Allergies Home Medications Medication Instructions Recorded Confirmed Type Omeprazole 20 mg PO BID 07/22/20 04/19/23 History Alogliptin Benzoate [Alogliptin] 25 mg PO DAILY 04/19/23 04/19/23 History Atorvastatin [Lipitor] 40 mg PO DAILY 04/19/23 04/19/23 History Clopidogrel [Plavix] 75 mg PO DAILY 04/19/23 04/19/23 History Empagliflozin [Jardiance] 10 mg PO DAILY 04/19/23 04/19/23 History Losartan Potassium 100 mg PO DAILY 04/19/23 04/19/23 History amLODIPine [Norvasc] 5 mg PO DAILY 04/19/23 04/19/23 History carvediloL [Coreg] 6.25 mg PO BID 04/19/23 04/19/23 History Allergies Allergy/AdvReac Type Severity Reaction Status Date / Time No Known Allergies Allergy Verified 04/19/23 16:21 Physical Exam Vitals: Vital Signs Temp Pulse Pulse Resp BP BP Pulse Ox 04/20/23 15:00 97.2 F L 62 18 122/79 96 04/20/23 09:44 97 04/20/23 07:00 97.4 F L 75 18 103/67 97 04/20/23 02:00 97.6 F 79 16 108/76 95 04/19/23 20:05 97.4 F L 63 15 131/84 97 02/02/24 19:38 63 18 118/74 95 04/19/23 17:45 72 18 116/76 96 Intake and Output 04/20/23 04/20/23 04/20/23 06:59 14:59 22:59 Intake Total 360 Balance 360 Intake: Oral 360 Other: # Voids 2 2 Results 04/19/23 15:28 04/19/23 15:28 Cardiac Enzymes 04/19/23 04/19/23 Range/Units 18:12 21:41 Troponin I <0.012 <0.012 (0.000-0.034) ng/mL Lipids 04/20/23 Range/Units 06:35 Triglycerides 134.00 (0.00-149.00) mg/dL Cholesterol 185.00 (0.00-200.00) mg/dL HDL Cholesterol 40.90 (40.00-60.00) mg/dL Cholesterol/HDL Ratio 4.52 Ratio Current Medications Generic Name Dose Route Start Last Admin Trade Name Freq PRN Reason Stop Dose Admin Amlodipine Besylate 5 mg 04/20/23 09:00 04/20/23 11:27 Amlodipine 5 Mg Tab PO 5 mg DAILY JAVED Administration Aspirin 81 mg 04/20/23 09:00 04/20/23 11:26 Aspirin 81 Mg PO 81 mg DAILY JAVED Administration Atorvastatin Calcium 40 mg 04/20/23 09:00 04/20/23 11:27 Atorvastatin 40 Mg Tab PO 40 mg DAILY JAVED Administration Carvedilol 6.25 mg 04/19/23 17:30 04/20/23 06:10 Carvedilol 6.25 Mg Tab PO 6.25 mg AC-BID JAVED Administration Dapagliflozin 5 mg 04/20/23 09:00 04/20/23 11:27 Dapagliflozin Propanediol 5 Mg Tablet PO 5 mg DAILY JAVED Administration Dextrose/Water 50 ml 04/19/23 16:55 Dextrose 50% Syringe 50 Ml IVP PER PROTOCOL PRN Hypoglycemia Protocol Dextrose/Water 25 ml 04/19/23 16:55 Dextrose 50% Syringe 50 Ml IVP PER PROTOCOL PRN Hypoglycemia Protocol Enoxaparin Sodium 40 mg 04/21/23 09:00 Enoxaparin 40 Mg/0.4 Ml Syringe SQ DAILY [facility] Insulin Aspart 0 unit 04/19/23 17:30 04/20/23 11:33 Insulin Aspart (Novolog) 100 Unit/Ml Vial SQ Not Given ACHS [facility] Protocol Losartan Potassium 100 mg 04/20/23 09:00 04/20/23 11:26 Losartan 50 Mg Tab PO 100 mg DAILY [facility] Administration Nitroglycerin 0.4 mg 04/19/23 16:20 Nitroglycerin Sl Tabs 0.4 Mg Tab SUBLINGUAL Q5M PRN Chest Pain Nitroglycerin 1 inch 04/19/23 18:00 04/20/23 13:18 Nitroglycerin Oint 1 Inch/Gm Packet TOPICAL Not Given Q6HR [facility] Pantoprazole Sodium 40 mg 04/19/23 17:30 04/20/23 06:10 Pantoprazole 40 Mg Tablet PO 40 mg AC-BID [facility] Administration Intake and Output 04/20/23 04/20/23 04/20/23 06:59 14:59 22:59 Intake Total 360 Balance 360 Intake: Oral 360 Other: # Voids 2 2 04/19/23 15:28 04/19/23 15:28
[2023-04-21] MEDS ORDERED: ENOXAPARIN 40 MG/0.4 ML SYRINGE SQ SCH (09:00)
== END 2023-04-20 17:17 | disposition home or self-care (01) ==
LOC: EC 14:28 → 6NMEDSUR 16:22
PROVIDERS: ADMIT Student in an Organized Health Care Education/Training Program; ATTEND Student in an Organized Health Care Education/Training Program
DX: R07.89 Other chest pain (principal); I25.10 Atherosclerotic heart disease of native coronary artery without angina pectoris; E11.9 Type 2 diabetes mellitus without complications; I10 Essential (primary) hypertension; E78.5 Hyperlipidemia, unspecified; K21.9 Gastro-esophageal reflux disease without esophagitis; F17.210 Nicotine dependence, cigarettes, uncomplicated; Z79.02 Long term (current) use of antithrombotics/antiplatelets; Z79.82 Long term (current) use of aspirin; Z79.84 Long term (current) use of oral hypoglycemic drugs; Z79.899 Other long term (current) drug therapy; Z82.49 Family history of ischemic heart disease and other diseases of the circulatory system
CPT/HCPCS: 96372; 99285; 36415; 94760; 93005; 80061; 80053; 83735; 84484; 85025; 85610; 85730; 83036; 71046; G0378 ×2

== ENCOUNTER → 2023-04-19 | Outpatient (CLI) | payer OTHER ==
--- NOTE | 2023-04-22 07:46 | MM ---
Reason for Exam: Screening (asymptomatic). Last mammogram was performed 1 year(s) and 3 month(s) ago. Patient History: Menarche at age 11. First Full-Term at age 20. Hysterectomy at age 44. Postmenopausal. 2012, Bilateral Reduction. Maternal grandmother had breast cancer. Paternal cousin had breast cancer. Risk Values: Jesi 5 year model risk: 1.2%. NCI Lifetime model risk: 6.7%. Prior Study Comparison: 08/15/2018 Screening Mammogram, [facility]. 06/29/2020 Bilateral Screening Mammogram, [facility]. 01/29/2022 Bilateral MG 3D screening mammo w/cad, [facility]. Tissue Density: There are scattered fibroglandular densities. Findings: Analyzed By CAD. There is no suspicious group of microcalcifications or new suspicious mass. Overall Assessment: Negative, BI-RAD 1 Management: Screening Mammogram of both breasts in [address] [facility] will attempt to contact patient to return for supplemental views and ultrasound if indicated. Patient should continue monthly self-breast exams. A clinical breast exam by your physician is recommended on an annual basis. This exam should not preclude additional follow-up of suspicious palpable abnormalities. Note on Jesi scores and lifetime risk: 1. A Jesi score greater than 3% is considered moderate risk. If this is the case, consider specialist referral to assess eligibility for a risk reducing agent. 2. If overall lifetime risk for the development of breast cancer is 20% or higher, the patient may qualify for future screening with alternating mammogram and breast MRI. Electronically signed and approved by: Frankie Posey DO
== END | disposition home or self-care (01) ==
LOC: RADMAMWWP 14:07
PROVIDERS: ATTEND Family Medicine
DX: Z12.31 Encounter for screening mammogram for malignant neoplasm of breast (principal); Z80.3 Family history of malignant neoplasm of breast; Z78.0 Asymptomatic menopausal state
CPT/HCPCS: 77067

== ENCOUNTER → 2023-06-20 | Outpatient (CLI) | payer OTHER ==
[2023-06-20 11:18] LABS: African American GFR (CKD) >90 (>60 ml/min/1.73 sqM); Blood Urea Nitrogen 12 mg/dL (7-17); Non-African American GFR(CKD) >90 (>60 ml/min/1.73 sqM)
--- NOTE | 2023-06-23 15:49 | CT ---
EXAMINATION TYPE: CT angio tho/abd W Run Off DATE OF EXAM: 06/20/2023 INDICATION: AAA COMPARISON: None CT DLP: 1275.3 mGycm CONTRAST: Performed and with IV Contrast, patient injected with 125ML mL of Isovue 370. TECHNIQUE: Axial images at 5 mm thick sections. Reconstructed images in the coronal plane. Delayed images through the kidneys. FINDINGS: Aorta: There is a three-vessel arch. Aortic arch appears unremarkable. Ascending thoracic aorta at th e level of main pulmonary artery is 3.6 cm. Aorta tapers normally through the descending thoracic aor ta. Celiac axis and superior mesenteric artery origins are normal. Renal artery origins are normal. M inimal vascular calcifications within the abdominal aorta. No aneurysmal dilatation is evident. No di ssections are evident. Common iliac arteries internal and external iliac arteries are patent. Common femoral arteries are no rmal. Profunda femoris and superficial femoral arteries are normal. Popliteal arteries are unremarkab le. Trifurcation vessels within the proximal portions are normal. Anterior and posterior tibial arter ies at the level of the ankle are patent. CT CHEST: Portion of the thyroid visualized is normal. No suspicious lung nodules or focal infiltrates are present. No enlarged mediastinal or hilar adenopathy is evident. The ascending aorta diameter at the level of the main pulmonary artery is 3.6 cm. The main pulmonary artery diameter at the bifurcation is 2.[address] ABDOMEN: Liver: There may be some mild fatty infiltration of the liver. Spleen: This is a patchy appearance at this early arterial phase of contrast Pancreas: Normal Adrenal glands: The adrenal glands are normal. Gallbladder: Normal Kidneys: No masses are evident. No hydronephrosis is present. No cysts are present. Aorta: Vascular calcification is within the aorta. Inferior vena cava: Normal. CT PELVIS: Loops of bowel within the abdomen and pelvis are normal. Studies without oral contrast limiting e valuation. Appendix: Normal as visualized. Urinary bladder: Normal. Genitourinary structures: Uterus and ovaries are not identified. Osseous structures: No suspicious lytic or sclerotic lesions. Degenerative disc changes are in lower lumbar spine. IMPRESSION: 1. No aneurysmal dilatation or dissection of the thoracic or abdominal aorta. 2. Aortic runoff through the lower extremities to the distal trifurcation vessels are patent to the l evel of the ankle.
== END | disposition home or self-care (01) ==
LOC: RADCTMAIN 10:03
PROVIDERS: ATTEND Family Medicine
DX: I71.40 Abdominal aortic aneurysm, without rupture, unspecified (principal)
CPT/HCPCS: 82565; 84520; 75635; 71275; 36415; Q9967

== ENCOUNTER → 2024-01-22 | Outpatient (CLI) | payer OTHER ==
--- NOTE | 2024-01-22 11:22 | CT ---
EXAMINATION TYPE: CT chest wo con CT DLP: 294.5 mGycm, Automated exposure control for dose reduction was used. DATE OF EXAM: 01/22/2024 10:51 AM COMPARISON: CTA thoracoabdominal with runoff 06/20/2023, CT chest 12/18/2021, 12/26/2020 CLINICAL INDICATION:Female, 58 years old with history of I71.20 THORACIC AORTIC ANEURYSM, WITHOUT RUP TURE,; PHH, follow up thoracic aneurysm TECHNIQUE: Multiple axial images were obtained through the chest without IV contrast. Lack of IV or o ral contrast limits evaluation of solid and hollow organ viscera. . Coronal and sagittal reformats re viewed. FINDINGS: LUNGS/ PLEURA: No pleural effusion, pneumothorax, or focal consolidation. No new suspicious pulmonary nodular mass. Right basilar linear scarring. AIRWAY: Patent and unremarkable.. HEART: Size within normal limits. No pericardial effusion. MEDIASTINUM: No gross evidence of adenopathy. VASCULATURE: Conventional three-vessel aortic arch. No thoracic aortic aneurysm. The aortic root javier sures up to 2.7 cm. The ascending thoracic aorta measures up to 3.8 cm. The descending thoracic aorta measures up to 2.6 cm. MUSCULOSKELETAL: No acute osseous abnormalities. Mild retrolisthesis of L1 on L2. Mild multilevel deg enerative disc disease. SOFT TISSUES/LYMPH NODES: Unremarkable. LOWER NECK: No significant findings. UPPER ABDOMEN: No significant findings. IMPRESSION: 1. No acute thoracic process. 2. No thoracic aortic aneurysm. The ascending thoracic aorta measures up to 3.8 cm. [facility], , 01/22/2024 11:20 AM
== END | disposition home or self-care (01) ==
LOC: RADCTMAIN 10:19
PROVIDERS: ATTEND Surgery
DX: I71.20 Thoracic aortic aneurysm, without rupture, unspecified (principal)
CPT/HCPCS: 71250

== ENCOUNTER → 2024-04-20 | Outpatient (CLI) | payer OTHER ==
--- NOTE | 2024-04-20 09:35 | MM ---
Reason for Exam: Screening (asymptomatic). Last screening mammogram was performed 12 month(s) ago. Patient History: Menarche at age 11. First Full-Term at age 20. Hysterectomy at age 44. Postmenopausal. 2012, Bilateral Reduction. Maternal grandmother had breast cancer. Paternal cousin had breast cancer. Risk Values: Jesi 5 year model risk: 1.3%. NCI Lifetime model risk: 6.6%. Prior Study Comparison: 06/29/2020 Bilateral Screening Mammogram, [facility]. 01/29/2022 Bilateral MG 3D screening mammo w/cad, [facility]. 04/19/2023 Bilateral MG screening mammo w CAD, [facility]. Tissue Density: There are scattered areas of fibroglandular density. Findings: Analyzed By CAD. A few tiny benign appearing round calcifications bilaterally are redemonstrated. Some benign-appearing bilateral axillary lymph nodes are noted. There is no suspicious group of microcalcifications or new suspicious mass in either breast. Overall Assessment: Benign, BI-RAD 2 Management: Screening Mammogram of both breasts in 1 year. . Patient should continue monthly self-breast exams. A clinical breast exam by your physician is recommended on an annual basis. This exam should not preclude additional follow-up of suspicious palpable abnormalities. Note on Jesi scores and lifetime risk: 1. A Jesi score greater than 3% is considered moderate risk. If this is the case, consider specialist referral to assess eligibility for a risk reducing agent. 2. If overall lifetime risk for the development of breast cancer is 20% or higher, the patient may qualify for future screening with alternating mammogram and breast MRI. [facility], , 04/20/2024 9:32 AM. Electronically signed and approved by: Nate Callahan M.D.
== END | disposition home or self-care (01) ==
LOC: RADMAMWWP 08:40
PROVIDERS: ATTEND Family Medicine
DX: Z12.31 Encounter for screening mammogram for malignant neoplasm of breast (principal); R92.323 Mammographic fibroglandular density, bilateral breasts; Z78.0 Asymptomatic menopausal state; Z80.3 Family history of malignant neoplasm of breast
CPT/HCPCS: 77067